=== PATIENT | female | born 1950 | race Caucasian/White ===

== ENCOUNTER 2016-03-18 08:29 | Emergency (ER) | payer SELFPAY ==
[2016-03-18 08:56] VITALS: BP 151/99
--- NOTE | 2016-03-18 10:26 | Emergency Department Report ---
Chief Complaint: Pain General Stated Complaint: ABD/HIP/LEG PAIN Time Seen by Provider: 03/18/16 10:05 - HPI History of Present Illness: 66-year-old female presents today which right shoulder, bilateral leg and feet pain, lower back pain 2 years. Also complaining of abdominal pain that comes and goes. Patient unable to communicate in [place]. is the historian. states patient worked in cold weather which caused her to have these symptoms. Seen by PCP 8 months ago, worked up, diagnosis unknown. Unable to follow up with PCP due to lack of insurance. Denies taking [id number] medication at this time. Denies fever, chills, nausea, vomiting, chest pain, shortness of breath. Denies abdominal pain at this time. - ROS Review of Systems: Per HPI - Exam Vital Signs: Vital Signs 03/18/16 08:53 Temperature 98.6 F Pulse Rate 74 Respiratory 18 Rate Blood Pressure 151/99 O2 Sat by Pulse 99 Oximetry Physical Exam: General: 66-year-old female in no acute distress. Well-developed, well- nourished. CV: Regular rate and rhythm. No murmurs rubs or gallops. Lungs: Clear to auscultation bilaterally. Abdomen: No tenderness to palpation. No guarding or rebound tenderness. MSE screening note: Focused history and physical exam performed. Due to findings the following was ordered: ED Disposition for MSE Disposition: MEDICAL SCREENING EXAM-LEFT Condition: Stable Referrals: PRIMARY CARE, [Primary Care Provider] - 3-5 Days
== END 2016-03-18 10:19 | disposition left against medical advice (07) ==
LOC: ED 08:29
DX: M25.511 Pain in right shoulder (principal); M79.605 Pain in left leg; M79.604 Pain in right leg; M54.5 Low back pain; R10.9 Unspecified abdominal pain; Z53.21 Procedure and treatment not carried out due to patient leaving prior to being seen by health care provider